=== PATIENT | female | born 2005 | race Hispanic/Latino ===

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

== ENCOUNTER 2024-05-08 20:16 | Emergency (ER) | payer OTHER, SELFPAY ==
--- OUTSIDE RECORDS SUMMARY | 2024-05-08 20:19 | XMS REPORT | Continuity of Care Document ---
Author Name Unknown Address [address] [facility] [address] [place] [address] [facility] thconnect Address [address] [facility] [address] [place] [address] Care Team Providers Care Checkroom Chief Name Role Phone Unavailable Unavailable Unavailable Encounters Start Date/Time End Date/Time Encounter Type Admission Type Attending Clinicians Care Facility Care Department Encounter ID Source 2023-12-14 14:34:35 2023-12-14 14:34:35 Outpatient SFA SFA [id number] Victor M Leavitt 2023-12-09 08:47:18 2023-12-09 08:47:18 Outpatient SFA SFA [id number] Victor M Leavitt 2023-12-08 17:11:20 2023-12-08 17:11:20 Outpatient SFA SFA [id number] Victor M Leavitt 2023-10-28 17:35:06 2023-10-28 17:35:06 Outpatient SFA SFA [id number] Victor M Leavitt 2023-10-22 14:28:39 2023-10-22 14:28:39 Outpatient SFA SFA [id number] Victor M Leavitt 2023-09-22 16:37:36 2023-09-22 16:37:36 Outpatient SFA SFA [id number] Victor M [place] 2023-06-04 16:17:26 2023-06-04 16:17:26 Outpatient SFA SFA [id number] Victor M Leavitt 2023-04-27 16:54:36 2023-04-27 16:54:36 Outpatient SFA SFA [id number] Victor M Leavitt 2023-03-17 15:30:16 2023-03-17 15:30:16 Outpatient [facility] [id number] Victor M Leavitt 2023-03-15 13:06:19 2023-03-15 13:06:19 Outpatient [facility] [id number] Victor M Leavitt Results Test Description Test Time Test Comments Results Result Co mments Source
[2024-05-08 22:08] LABS: SARS-CoV-2 Antigen CONTROL BLUE LINE VIS/BG OK; SARS-CoV-2 Antigen Rapid Res Negative (Negative)
--- NOTE | 2024-05-08 22:11 | ER ---
Nurse's Notes [facility] Name: Karla Newby Age: 18 yrs Sex: Female : 2005 Arrival Date: 05/08/2024 Time: 20:16 Bed IW7 Private MD: Diagnosis: Viral infection, unspecified Presentation: 05/08 21:27 Chief complaint: Patient states: Nausea, headache and sore throat onset yesterday. cm10 Coronavirus screen: Client denies travel out of the [place] in the last 14 days. At this time, the client does not indicate any symptoms associated with coronavirus-19. Ebola Screen: Patient denies travel to an Ebola-affected area in the 21 days before illness onset. No symptoms or risks identified at this time. Initial Sepsis Screen: Does the patient meet any 2 criteria? No. Patient's initial sepsis screen is negative. Does the patient have a suspected source of infection? No. Patient's initial sepsis screen is negative. Risk Assessment: Do you want to hurt yourself or someone else? Patient reports no desire to harm self or others. Onset of symptoms was May 08, 2024. 21:27 Method Of Arrival: Ambulatory cm10 21:27 Acuity: VICTOR MANUEL 4 cm10 Triage Assessment: 21:28 General: Appears in no apparent distress. comfortable, Behavior is calm, cooperative. cm10 Neuro: No deficits noted. Level of Consciousness is awake, alert, obeys commands, Oriented to person, place, time, situation, Appropriate for age. Respiratory: No deficits noted. Airway is patent Respiratory effort is even, unlabored, Respiratory pattern is regular, symmetrical. Historical: - Allergies: 21:28 No Known Allergies; cm10 - Home Meds: 21:28 None [Active]; cm10 - PMHx: 21:28 acid reflux; cm10 - PSHx: 21:28 None; cm10 - Immunization history:: Adult Immunizations up to date. - Infectious Disease History:: Denies. - Social history:: Smoking status: Patient denies any tobacco usage or history of. Screenin:11 [facility] ED Fall Risk Assessment (Adult) History of falling in the last 3 months, ha1 including since admission No falls in past 3 months (0 pts) Confusion or Disorientation No (0 pts) Intoxicated or Sedated No (0 pts) Impaired Gait No (0 pts) Mobility Assist Device Used No (0 pt) Altered Elimination No (0 pt) Score/Fall Risk Level 0 - 2 = Low Risk Oriented to surroundings, Maintained a safe environment, Educated pt \T\ family on fall prevention, incl call for assistance when getting out of bed, Hourly rounding (assess needs \T\ fall precautionary measures) done. Abuse screen: Denies threats or abuse. Denies injuries from another. Nutritional screening: No deficits noted. Tuberculosis screening: No symptoms or risk factors identified. Assessment: 23:10 Reassessment: Patient and/or family updated on plan of care and expected duration. Pain ha1 level reassessed. Patient is alert, oriented x 3, equal unlabored respirations, skin warm/dry/pink. DISCHARGE DELAYED DUE TO NURSE CAPACITY Patient states feeling better. Patient states symptoms have improved. Vital Signs: 21:27 BP 129 / 64; Pulse 87; Resp 15; Temp 99.9(O); Pulse Ox 100% on R/A; Weight 79.38 kg; cm10 Height 5 ft. 2 in. ; Pain 8/10; 23:10 BP 122 / 65; Pulse 87; Resp 17 S; Pulse Ox 100% on R/A; ha1 21:27 Body Mass Index 32.01 (79.38 kg, 157.48 cm) - Percentile 95.3 % cm10 21:27 Pain Scale: Adult cm10 ED Course: 20:19 Patient arrived in ED. im 20:44 [facility] sb4 20:44 Alfredo Wild MD is Attending Physician. sb4 21:28 Triage completed. cm10 21:28 Arm band placed on Patient placed in waiting room. cm10 21:29 Patient has correct armband on for positive identification. ha1 21:36 Strep Sent. cm10 21:36 Flu Sent. cm10 21:36 SARS RAPID Sent. cm10 21:36 COVID swab sent to lab. Flu and/or RSV swab sent to lab. Strep swab sent to lab. cm10 23:11 No provider procedures requiring assistance completed. Patient did not have IV access ha1 during this emergency room visit. 23:13 Provided Education on: MEDICATION ADMINISTRATION . ha1 Administered Medications: 21:31 CANCELLED (Physician Discretion): [id number] mg IM once sb4 22:55 Drug: Ketorolac IM 30 mg IM once Route: IM; Site: left deltoid; ha1 23:10 Follow up: Response: No adverse reaction; Marked relief of symptoms ha1 22:55 Drug: Ondansetron Oral Disintegrating Tablet Oral Disintegrating Tablet 4 mg PO once ha1 Route: PO; 23:10 Follow up: Response: No adverse reaction ha1 Medication: 23:12 VIS not applicable for this client. ha1 Outcome: 22:11 Discharge ordered by . sb4 23:12 Discharged to home ambulatory, with family, ha1 23:12 Condition: stable 23:12 Discharge instructions given to patient, family, Instructed on discharge instructions, follow up and referral plans. medication usage, Demonstrated understanding of instructions, follow-up care, medications, Prescriptions given X 1, 23:13 Patient left the ED. ha1 Signatures: Leni Bruno RN RN ha1 Stephanie Ortiz, PALilaC PAChelsie sb4 Vidhi Colon Clarissa RN RN cm10
--- NOTE | 2024-05-08 22:12 | EDPHYS ---
Physician Documentation [facility] Name: Karla Newby Age: 18 yrs Sex: Female : 2005 Arrival Date: 05/08/2024 Time: 20:16 Bed IW7 Private MD: ED Physician Alfredo Wild HPI: 05/08 21:38 This 18 yrs old Female presents to ER via Ambulatory with complaints of Flu sb4 Symptoms. 21:38 headache, malaise, sore throat, nausea starting yesterday. taking tylenol and motrin sb4 without significant relief. denies any sick contacts. no fever, chest pain, cough, sob. Historical: - Allergies: 21:28 No Known Allergies; cm10 - Home Meds: 21:28 None [Active]; cm10 - PMHx: 21:28 acid reflux; cm10 - PSHx: 21:28 None; cm10 - Immunization history:: Adult Immunizations up to date. - Infectious Disease History:: Denies. - Social history:: Smoking status: Patient denies any tobacco usage or history of. ROS: 21:39 Respiratory: Negative for shortness of breath, cough, wheezing, and pleuritic chest sb4 pain, 21:39 Constitutional: Positive for body aches, malaise, 21:39 ENT: Positive for sore throat, 21:39 Abdomen/GI: Positive for nausea, Exam: 21:39 Constitutional: This is a well developed, well nourished patient who is awake, alert, sb4 and in no acute distress. Head/Face: Normocephalic, atraumatic. Eyes: Extra-ocular motions intact. Periorbital areas with no swelling, redness, or edema. ENT: Mucous membranes moist. Cardiovascular: Regular rate and rhythm with a normal S1 and S2. Respiratory: Lungs have equal breath sounds bilaterally, clear to auscultation and percussion. No rales, rhonchi or wheezes noted. No increased work of breathing, no retractions or nasal flaring. Abdomen/GI: Soft, non-tender, no distension. Skin: Warm, dry with normal turgor. Normal color with no rashes, no lesions, and no evidence of cellulitis. Vital Signs: 21:27 BP 129 / 64; Pulse 87; Resp 15; Temp 99.9(O); Pulse Ox 100% on R/A; Weight 79.38 kg; cm10 Height 5 ft. 2 in. ; Pain 8/10; 23:10 BP 122 / 65; Pulse 87; Resp 17 S; Pulse Ox 100% on R/A; ha1 21:27 Body Mass Index 32.01 (79.38 kg, 157.48 cm) - Percentile 95.3 % cm10 21:27 Pain Scale: Adult cm10 MDM: 20:58 Patient medically screened. sb4 22:10 Data reviewed: vital signs, nurses notes, lab test result(s), and as a result, I will sb4 discharge patient. Counseling: I had a detailed discussion with the patient and/or guardian regarding the historical points, exam findings, and any diagnostic results supporting the discharge/admit diagnosis, lab results, to return to the emergency department if symptoms worsen or persist or if there are any questions or concerns that arise at home. 05/08 21:31 Order name: SARS RAPID; Complete Time: 22:10 sb4 05/08 21:31 Order name: Flu; Complete Time: 22:10 sb4 05/08 21:31 Order name: Strep sb4 05/08 22:10 Order name: Throat Culture EDMS Administered Medications: 21:31 CANCELLED (Physician Discretion): [id number] mg IM once sb4 22:55 Drug: Ketorolac IM 30 mg IM once Route: IM; Site: left deltoid; ha1 23:10 Follow up: Response: No adverse reaction; Marked relief of symptoms ha1 22:55 Drug: Ondansetron Oral Disintegrating Tablet Oral Disintegrating Tablet 4 mg PO once ha1 Route: PO; 23:10 Follow up: Response: No adverse reaction ha1 Disposition: 05/09 19:52 Co-signature as Attending Physician, Alfredo Wild MD I agree with the assessment sp4 and plan of care. I reviewed the patient's care provided by Advanced Practice Provider \T\ agree w/ the diagnosis \T\ care plan. I personally saw the pt \T\ performed a substantive portion of the visit, incldng all aspects of the (History/Exam/Medical Decision Making). Disposition Summary: 05/08/24 22:11 Discharge Ordered Notes: Location: Home sb4 Problem: new sb4 Symptoms: have improved sb4 Condition: Stable sb4 Diagnosis - Viral infection, unspecified sb4 Followup: sb4 - With: Emergency Department - When: As needed - Reason: Trouble breathing, Worsening of condition Discharge Instructions: - Discharge Summary Sheet sb4 - Viral Illness, Adult sb4 Forms: - Patient Portal Instructions sb4 - Leadership Thank You Letter sb4 Prescriptions: - Medrol (Sarmad) 4 mg Oral Tablets, Dose Pack - take 1 tablet ORAL route as directed - follow package instructions; 1 packet; sb4 Refills: 0, Product Selection Permitted Signatures: Dispatcher [employer] EDMS Leni Bruno, RN RN ha1 Stephanie Ortiz, OMKAR PAChelsie sb4 Alfredo Wild MD MD sp4 Camryn Sheffield RN RN cm10 Corrections: (The following items were deleted from the chart) 05/08 21:31 21:31 diphenhydrAMINE IM 25 mg IM once ordered. sb4 sb4 21:31 21:31 SARS-COV-2 Antigen Rapid+I.LAB.BRZ ordered. EDMS EDMS 21:31 21:31 Influenza Screen (A \T\ B)+BA.LAB.BRZ ordered. EDMS EDMS 21:31 21:31 Group A Streptococcus Rapid Sc+BA.LAB.BRZ ordered. EDMS EDMS 21:39 21:38 headache, malaise. sb4 sb4
[2024-05-08] MEDS ORDERED: KETOROLAC 30 MG/ML INJ ONE (22:46)
[2024-05-08] MEDS ORDERED: ONDANSETRON 4 MG (ODT) TAB ONE (22:47)
== END 2024-05-08 23:13 | disposition home or self-care (01) ==
LOC: ER 20:16
DX: B34.9 Viral infection, unspecified (principal); Z11.52 Encounter for screening for COVID-19
CPT/HCPCS: 87070; 36415; 87081; 87804 ×2; 96372; 99284; 87811; Q0162

== ENCOUNTER 2025-05-05 15:50 | Emergency (ER) | payer OTHER, SELFPAY ==
--- OUTSIDE RECORDS SUMMARY | 2025-05-05 15:52 | XMS REPORT | Continuity of Care Document ---
Author Name Unknown Address [address] [place] [address] [facility] Address [address] [place] [address] Care Team Providers Care Cooperative Education Director Name Role Phone Unavailable Unavailable Unavailable Encounters Start Date/Time End Date/Time Encounter Type Admission Type Attending Clinicians [facility] Facility Care Department Encounter ID Source 2023-12-14 14:34:35 2023-12-14 14:34:35 Outpatient [facility] SFA [id number] Victor M Leavitt 2023-12-09 08:47:18 2023-12-09 08:47:18 Outpatient SFA SFA [id number] Victor M Leavitt 2023-12-08 17:11:20 2023-12-08 17:11:20 Outpatient SFA SFA [id number] Victor M Leavitt 2023-10-28 17:35:06 2023-10-28 17:35:06 Outpatient SFA SFA [id number] Victor M Leavitt 2023-10-22 14:28:39 2023-10-22 14:28:39 Outpatient SFA SFA [id number] Victor M Leavitt 2023-09-22 16:37:36 2023-09-22 16:37:36 Outpatient SFA SFA [id number] Victor M [place] 2023-06-04 16:17:26 2023-06-04 16:17:26 Outpatient SFA SFA [id number] Victor M Leavitt 2023-04-27 16:54:36 2023-04-27 16:54:36 Outpatient SFA SFA [id number] Victor M [place] 2023-03-17 15:30:16 2023-03-17 15:30:16 Outpatient [facility] [id number] Victor M Leavitt 2023-03-15 13:06:19 2023-03-15 13:06:19 Outpatient [facility] [id number] Victor M Leavitt Results Test Description Test Time Test Comments Results Result Co mments Source
[2025-05-05 16:34] LABS: Urine Crystals Unidentified Few /HPF (None Seen); Urine Culture Reflex Order NOT NEEDED; Urine Microscopic Reflex YN ORDER UMIC; Urine Yeast (Budding) Trace /HPF (None Seen)
[2025-05-05 16:48] LABS: SARS-CoV-2 Antigen Rapid Res Negative (Negative)
[2025-05-05] MEDS ORDERED: NA CHLORIDE 0.9% 1,000 ML ONE (16:52)
[2025-05-05 17:11] LABS: Absolute Lymphocytes (CBC) 2.6 K/uL (0.7-4.9); Hematocrit 37.6 % (36.0-45.0); Hemoglobin 12.7 g/dL (12.0-15.0); MCH 31.5 pg (27.0-35.0); MCHC 33.9 g/dL (32.0-36.0); MCV 92.9 fL (80-100); MPV 9.3 fL (7.6-11.3); Nucleated RBC Absolute Count 0.0 (0-0); Nucleated Red Blood Cells % 0.0 % (0-0); RBC Red Blood Cell Count 4.05 M/uL (3.86-4.86); White Blood Count 9.60 thou/uL (4.3-10.9)
[2025-05-05] MEDS ORDERED: KETOROLAC 30 MG/ML INJ ONE (17:23)
[2025-05-05] MEDS ORDERED: METOCLOPRAMIDE 10 MG/2mL INJ ONE (17:23)
[2025-05-05] MEDS ORDERED: DIPHENHYDRAMINE 50 MG/ML VIAL ONE (17:24)
[2025-05-05 17:38] LABS: ALT/SGPT 22.0 U/L (13-56); AST/SGOT 14.0 U/L (15-37); Albumin 3.6 g/dL (3.4-5.0); Albumin/Globulin Ratio 0.9 (1.1-1.8); Alkaline Phosphatase 99.0 U/L (45-117); Anion Gap 6.5 mEq/L (5.0-15.0); BUN Blood Urea Nitrogen 13.0 mg/dL (7-18); Globulin 3.9 g/dL (2.3-3.5); Glucose Level 107.0 mg/dL (74-106); Potassium 3.5 mEq/L (3.5-5.1)
--- NOTE | 2025-05-05 18:20 | ER ---
Nurse's Notes [facility] Name: Karla Newby Age: 19 yrs Sex: Female : 2005 Arrival Date: 05/05/2025 Time: 15:50 Bed 5 Private MD: Diagnosis: Nausea with vomiting, unspecified;Headache Presentation: 05/05 16:00 Chief complaint: Patient states: SOLORZANO with N/V started last night. Coronavirus screen: ll1 Client denies travel out of the [place] in the last 14 days. At this time, the client does not indicate any symptoms associated with coronavirus-19. Ebola Screen: Patient denies travel to an Ebola-affected area in the 21 days before illness onset. 16:00 Method Of Arrival: Ambulatory ll1 16:04 Initial Sepsis Screen: Does the patient meet any 2 criteria? No. Patient's initial ll1 sepsis screen is negative. Does the patient have a suspected source of infection? No. Patient's initial sepsis screen is negative. Risk Assessment: Do you want to hurt yourself or someone else? Patient reports no desire to harm self or others. Onset of symptoms was May 04, 2025. 16:04 Acuity: VICTOR MANUEL 3 ll1 Triage Assessment: 15:59 General: Appears uncomfortable, Behavior is calm, cooperative, appropriate for age. ll1 Pain: Complains of pain in head Quality of pain is described as aching. Neuro: Reports headache. GI: Reports nausea, vomiting. 16:00 General: Appears in no apparent distress. uncomfortable, Behavior is cooperative, bp appropriate for age, anxious. Pain: Complains of pain in head. EENT: No deficits noted. Neuro: Reports headache. Cardiovascular: No deficits noted. Respiratory: No deficits noted. GI: Reports nausea. : No signs and/or symptoms were reported regarding the genitourinary system. Derm: No deficits noted. Musculoskeletal: No deficits noted. Historical: - Allergies: 16:01 No Known Allergies; ll1 - PMHx: 16:01 acid reflux; ll1 - PSHx: 16:01 None; ll1 - Immunization history:: Adult Immunizations up to date. - Infectious Disease History:: Denies. - Social history:: Smoking status: Patient denies any tobacco usage or history of. Screenin:[address] [facility] ED Fall Risk Assessment (Adult) History of falling in the last 3 months, bp including since admission No falls in past 3 months (0 pts) Confusion or Disorientation No (0 pts) Intoxicated or Sedated No (0 pts) Impaired Gait No (0 pts) Mobility Assist Device Used No (0 pt) Altered Elimination No (0 pt) Score/Fall Risk Level 0 - 2 = Low Risk Oriented to surroundings. Abuse screen: Denies threats or abuse. Denies injuries from another. Nutritional screening: No deficits noted. Tuberculosis screening: No symptoms or risk factors identified. Assessment: 16:00 General: SEE TRIAGE NOTE. bp 18:00 Reassessment: Patient appears in no apparent distress at this time. Patient is alert, bp oriented x 3, equal unlabored respirations, skin warm/dry/pink. GI: Abdomen is non-distended. Vital Signs: 16:04 BP 107 / 66; Pulse 87; Resp 17; Temp 97.2; Pulse Ox 99% ; Weight 77.11 kg; Height 5 ft. ll1 2 in. ; Pain 8/10; 18:35 BP 111 / 69; Pulse 75; Resp 16; Pulse Ox 99% ; bp 16:04 Body Mass Index 31.09 (77.11 kg, 157.48 cm) ll1 16:04 Pain Scale: Adult ll1 ED Course: 15:52 Patient arrived in ED. cj3 15:52 Radha Dow FNP-C [facility]. kb 15:52 Barry Boyce is Attending Physician. kb 16:00 Arm band placed on. ll1 16:05 Triage completed. ll1 16:07 SARS-COV-2 Antigen Rapid Sent. ll1 16:21 SARS-COV-2 Antigen Rapid Sent. ll1 16:21 Test, Urine Sent. ll1 16:21 UA Rfx Brandyn Cult if indicated Sent. ll1 16:30 Initial lab(s) drawn, by nm, sent to lab. Inserted saline lock: 20 gauge in right bp antecubital area, using aseptic technique. Blood collected. Flushed with 10 mL NS. 16:50 Reji Soto, RN is Primary Nurse. bp 18:35 Patient has correct armband on for positive identification. bp 18:35 No provider procedures requiring assistance completed. IV discontinued, intact, bp bleeding controlled, No redness/swelling at site. Pressure dressing applied. Administered Medications: 16:45 Drug: NS 0.9% IV 1000 ml IV at 1000 ml once; to be given as a bolus over 60 minutes bp Route: IV; Rate: 1000 ml; Site: right antecubital; 18:37 Follow up: IV Status: Completed infusion bp 17:30 Drug: metoCLOPramide IVP 10 mg IVP once; over 1 to 2 minutes Route: IVP; Site: right bp antecubital; 18:38 Follow up: Response: No adverse reaction bp 17:30 Drug: diphenhydrAMINE IVP 12.5 mg IVP once Route: IVP; Site: right antecubital; bp 18:37 Follow up: Response: No adverse reaction bp 17:30 Drug: Decadron - Dexamethasone IVP 10 mg IVP once Route: IVP; Site: right antecubital; bp 18:37 Follow up: Response: No adverse reaction bp 17:30 Drug: Ketorolac IVP 15 mg IVP once Route: IVP; Site: right antecubital; bp 18:37 Follow up: Response: No adverse reaction bp Medication: 18:35 VIS not applicable for this client. bp Outcome: 18:20 Discharge ordered by . oj 18:36 Discharged to home ambulatory, with family, bp 18:36 Condition: stable 18:36 Discharge instructions given to patient, Instructed on discharge instructions, follow up and referral plans. medication usage, Demonstrated understanding of instructions, follow-up care, medications, Prescriptions given X 1, 18:38 Patient left the ED. bp Signatures: Radha Dow FNP-C FNP-Reji Maldonado RN RN bp Anson Gandhi RN RN ll1 Elham Goyal 3
--- NOTE | 2025-05-05 18:20 | EDPHYS ---
Physician Documentation [facility] Name: Karla Newby Age: 19 yrs Sex: Female : 2005 Arrival Date: 05/05/2025 Time: 15:50 Bed 5 Private MD: ED Physician Barry Boyce HPI: 05/05 16:18 This 19 yrs old Female presents to ER via Ambulatory with complaints of kb Nausea/Vomiting, Migraine. 16:18 Patient is a 19-year-old female who presents for nausea, vomiting and headache that kb started last night. States she started having nausea and vomiting and then the headache came afterwards. Reports photophobia. States she has been unable to tolerate anything by mouth since last night. Denies fever, abdominal pain.. Historical: - Allergies: 16:01 No Known Allergies; ll1 - PMHx: 16:01 acid reflux; ll1 - PSHx: 16:01 None; ll1 - Immunization history:: Adult Immunizations up to date. - Infectious Disease History:: Denies. - Social history:: Smoking status: Patient denies any tobacco usage or history of. ROS: 16:19 Constitutional: As per HPI kb Exam: 16:19 Constitutional: This is a well developed, well nourished patient who is awake, alert, kb and in no acute distress. Head/Face: Normocephalic, atraumatic. ENT: Moist Mucous membranes Cardiovascular: Regular rate Respiratory: Respirations even and unlabored. No increased work of breathing. Talking in full sentences Abdomen/GI: Soft, non-tender. No distention Skin: Warm, dry with normal turgor. Normal color. MS/ Extremity: Pulses equal, no cyanosis. Neurovascular intact. Full, normal range of motion. Neuro: Awake and alert, GCS 15, oriented to person, place, time, and situation. Vital Signs: 16:04 BP 107 / 66; Pulse 87; Resp 17; Temp 97.2; Pulse Ox 99% ; Weight 77.11 kg; Height 5 ft. ll1 2 in. ; Pain 8/10; 18:35 BP 111 / 69; Pulse 75; Resp 16; Pulse Ox 99% ; bp 16:04 Body Mass Index 31.09 (77.11 kg, 157.48 cm) ll1 16:04 Pain Scale: Adult ll1 MDM: 15:52 Medical Screening Exam initiated kb 16:19 Data reviewed: vital signs, nurses notes. kb 18:18 Differential diagnosis: Nonspecific abd pain, viral gastroenteritis, dehydration, kb abnormal electrolytes, migraine, tension headache. Test considered but Not performed: CT: ct head considered but pt has no neuro deficitcs. ct abd considered but pt has no abd pain or tenderness. Counseling: I had a detailed discussion with the patient and/or guardian regarding the historical points, exam findings, and any diagnostic results supporting the discharge/admit diagnosis, lab results, the need for outpatient follow up, a family practitioner, to return to the emergency department if symptoms worsen or persist or if there are any questions or concerns that arise at home. 05/05 16:02 Order name: CBC with Diff; Complete Time: 17:14 kb 05/05 16:02 Order name: CMP; Complete Time: 17:43 kb 05/05 16:02 Order name: UA Rfx Brandyn Cult if indicated; Complete Time: 16:44 kb 05/05 16:02 Order name: Test, Urine; Complete Time: 16:44 kb 05/05 16:02 Order name: SARS-COV-2 Antigen Rapid; Complete Time: 16:54 kb 05/05 16:02 Order name: IV Start; Complete Time: 17:21 kb Administered Medications: 16:45 Drug: NS 0.9% IV 1000 ml IV at 1000 ml once; to be given as a bolus over 60 minutes bp Route: IV; Rate: 1000 ml; Site: right antecubital; 18:37 Follow up: IV Status: Completed infusion bp 17:30 Drug: metoCLOPramide IVP 10 mg IVP once; over 1 to 2 minutes Route: IVP; Site: right bp antecubital; 18:38 Follow up: Response: No adverse reaction bp 17:30 Drug: diphenhydrAMINE IVP 12.5 mg IVP once Route: IVP; Site: right antecubital; bp 18:37 Follow up: Response: No adverse reaction bp 17:30 Drug: Decadron - Dexamethasone IVP 10 mg IVP once Route: IVP; Site: right antecubital; bp 18:37 Follow up: Response: No adverse reaction bp 17:30 Drug: Ketorolac IVP 15 mg IVP once Route: IVP; Site: right antecubital; bp 18:37 Follow up: Response: No adverse reaction bp Disposition: 18:57 Co-signature as Attending Physician, Barry Boyce I agree with the assessment ci and plan of care. I reviewed the patient's care provided by the Advanced Practice Provider and agree with the diagnosis and treatment plan. Disposition Summary: 05/05/25 18:20 Discharge Ordered Notes: Location: Home kb Condition: Stable kb Diagnosis - Nausea with vomiting, unspecified kb - Headache kb Followup: kb - With: Emergency Department - When: As needed - Reason: Worsening of condition Followup: kb - With: Private Physician - When: 2 - 3 days - Reason: Recheck today's complaints, Continuance of care, Re-evaluation by your physician Discharge Instructions: - Discharge Summary Sheet kb - Nausea and Vomiting, Adult, [id number] kb - General Headache Without Cause, [id number] kb Forms: - Medication Reconciliation Form kb - Antibiotic Education kb - Prescription Opioid Use kb - Patient Portal Instructions kb - Leadership Thank You Letter kb Prescriptions: - ondansetron 4 mg Oral Tablet,disintegrating - take 1 tablet ORAL route every 6 hours as needed for nausea and vomiting; 12 kb tablet; Refills: 0, Product Selection Permitted Signatures: Dispatcher [employer] Radha Figueroa, JOSÉ ANTONIO-C JOSÉ ANTONIO-Reji Maldonado, RN RN Anson Mejía RN RN ll1 Carli, Barry bah
[2025-05-05 18:44] VITALS: TEMP 97.2; O2SAT 99
[2025-05-05 18:46] VITALS: BP 111/69
== END 2025-05-05 18:38 | disposition home or self-care (01) ==
LOC: ER 15:50
DX: R11.2 Nausea with vomiting, unspecified (principal); R51.9 Headache, unspecified; Z11.52 Encounter for screening for COVID-19
CPT/HCPCS: 36415; 80053; 81001; 81025; 85025; 87426; 96361; 96374; 96375; 99284; J1100; J1200; J2765; J7030